=== PATIENT | male | born 1955 | race Caucasian/White ===

== ENCOUNTER 2018-12-20 13:42 | Outpatient (CLI) | payer OTHER ==
--- NOTE | 2018-12-20 14:17 | RAD ---
FEXAM: XR Chest Pa Lat STANDARD DATE: 12/20/2018 12:00 AM ORDERING PHYSICIAN: Paul Estevez MD INDICATION: Occupational exposure to asbestos FINDING: The lungs are clear. Heart size is normal. No acute osseous abnormality is evident. IMPRESSION:No acute abnormality
== END 2018-12-20 13:43 | disposition home or self-care (01) ==
LOC: BICRAD 13:42
PROVIDERS: ATTEND Legal Medicine
DX: J61 Pneumoconiosis due to asbestos and other mineral fibers (principal)
CPT/HCPCS: 71046